=== PATIENT | female | born 2000 | race African-American/Black ===

== ENCOUNTER 2023-08-20 08:15 | Emergency (ER) | payer OTHER, SELFPAY ==
--- NOTE | 2023-08-20 09:01 | EDRN ---
the pt was compliant with this RN obtaining vital signs, and allowing this RN to draw labs, the pt also provided a urine sample with no issues, the pt is calm, pleasant, and cooperative with staff, the pt stated to this RN, 'I just want help with my
mental health, the voices are acting up again and they make me want to hurt myself, and i am just super anxious and i have been looking into facilities and would love to go to [place] to be treated', Dr. Owen at the pts bedside speaking with the
pt, the pts mother, and the pts grandmother, pts BP elevated at 150/99 (112), will continue to monitor the pt closely
[2023-08-20 09:17] LABS: % Basophils 0.5 % (0-2); % Eosinophils 4.5 % (0-6); % Immature Granulocytes 0.3 % (0-0.5); % Lymphocytes 33.6 % (20.5-51.1); % Monocytes 6.8 % (1.7-9.3); % Neutrophils 54.3 % (42.2-75.2); Absolute Eosinophils 0.3 10^3/uL (0-0.7); Absolute Lymphocytes 2.2 10^3/uL (1.2-3.4); Absolute Monocytes 0.5 10^3/uL (0.1-0.6); Absolute Neutrophils 3.6 10^3/uL (1.4-6.5); Hematocrit 39.9 % (37.0-47.0); Hemoglobin 13.1 g/dL (12.0-16.0); Mean Corp Hgb Conc. 32.8 g/dL (33.0-37.0); Mean Corpuscular Hgb 27.6 pg (27.0-31.0); Mean Corpuscular Volume 84.2 fL (81.0-99.0); Mean Platelet Volume 10.5 fL (7.4-10.4); Nucleated Red Blood Cells % 0 %; Platelet Count 384 10^3/uL (130-400); Red Blood Cell Count 4.74 10^6/uL (4.20-5.40); Red Cell Dist. Width 14.1 % (11.5-14.5); White Blood Cell Count 6.6 10^3/uL (4.8-10.8)
[2023-08-20] MEDS: NORVASC 10 MG PO (09:21)
--- NOTE | 2023-08-20 09:23 | ED.GENMED ---
History of Present Illness
General
Chief Complaint: Crisis Evaluation
Source: patient and family
Time Seen by Provider: 08/20/23 08:45
Travel History
Have you had any contact with someone who has COVID-19?: No
Do you have any symptoms of coronavirus? Fever > 100 degrees, chills, cough, shortness of breath, sore throat, loss of taste or smell, muscle aches, or headache?: No
History of Present Illness
History of Present Illness:
23-year-old female with a history of hypertension, schizophrenia, prior suicide attempts who presents for evaluation after she has had increasing voices and suicidal ideation. She states has been progressive over the last month. She also admits
that she has not been taking her blood pressure pills for the last 1 month. Patient denies any medical complaints. She specifically denies chest pain or shortness of breath. No fevers.
Past History
Past History
ED Past Medical History: Asthma, HTN and Psychiatric (Schizophrenia, prior suicide attempt, bipolar disorder, ADHD)
ED Past Surgical History: Orthopedic and Other
Social History
Tobacco: Vaping
Alcohol: None
Drug: None
Personal: Single
Living: with family
Phy Exam
Physical Exam
Physical Exam:
CONSTITUTIONAL Patient alert and oriented to person, place and time. Well-appearing. Vital signs reviewed.
HEAD atraumatic, normocephalic.
EYES eyelids normal to inspection, Pupils equally round and reactive to light, Extraocular muscles intact, Conjunctiva normal, Sclera normal.
NECK normal range of motion, Trachea midline, no jugular venous distention.
RESPIRATORY CHEST No respiratory distress noted, Chest expansion equal, Bilateral breath sounds clear.
CARDIOVASCULAR regular rate and rhythm, Heart sounds normal.
ABDOMEN abdomen nontender, Bowel sounds normal. No distention.
BACK normal inspection, no obvious deformities
UPPER EXTREMITY range of motion normal, Motor strength normal, no cyanosis, no edema.
LOWER EXTREMITY range of motion normal, Motor strength normal, no cyanosis, no edema.
NEURO Speech normal, No focal motor deficits, Arthur coma scale 15, Memory normal, Cranial Nerves intact to screening exam.
SKIN skin warm, dry, and normal in color.
PSYCHIATRIC patient oriented to person place and time, Normal affect.
Course
Orders/Labs/Results
Orders:
Orders
08/20/23 08:35
HCG, Urine Qualitative Screen Urgent
Date Specimen was Collected: 08/20/23
Time Specimen was Collected: 08:37
Urine Drug Abuse Screen Urgent
Date Specimen was Collected: 08/20/23
Time Specimen was Collected: 08:37
08/20/23 08:37
Test Result ONCE
08/20/23 08:45
Acetaminophen Urgent
Alcohol Urgent
COVID-19 Antigen Urgent
Source: Nasal Swab
Complete Blood Count/With Diff Urgent
Comprehensive Metabolic Panel Urgent
08/20/23 09:03
Amlodipine [Norvasc] 10 mg PO NOW STA
Vital Signs
Initial and Last Documented VS:
Initial Vital Signs
Temp Pulse Resp BP Pulse Ox
97.9 F 88 16 172/110 98
08/20/23 08:29 08/20/23 08:29 08/20/23 08:29 08/20/23 08:29 08/20/23 08:29
Last Documented Vital Signs
Temp Pulse Resp BP Pulse Ox
97.9 F 88 16 123/66 99
08/20/23 08:29 08/20/23 08:29 08/20/23 08:29 08/20/23 09:10 08/20/23 09:15
MDM/Problems Addressed
MDM/Problems Addressed:
Schizophrenia, suicidal thoughts
*Pulse Oximetry
Patient hypoxic: no
*Critical Care Note
Total Time (30-74mins, 75-104mins- exclusive of procedures): Not Applicable
Data Reviewed
Source: patient and family
Patient Management
Discussion with other providers: Other (Case discussed with [facility])
Escalation/DeEscalation of care consider admission/obs:
Stable. Labs for clearance and discharge back to crisis
ED Attending Note
-
Portions of this chart may have been created with voice recognition software.� Occasional wrong word or��sound alike� substitutions may have occurred due to the inherent limitations of voice recognition software.
Discharge Plan
Departure
Prescriptions:
No Action
gabapentin 100 mg Capsule
100 mg PO DAILY
aripiprazole [Abilify] 20 mg Tablet
20 mg PO DAILY
Interventions
Interventions:
*Risk Screen - Suicide Last Done: 08/20/23 08:29
*General Assessment Last Done: 08/20/23 08:47
*Neglect/Abuse Screening Last Done: 08/20/23 08:29
ED- Fall Risk Assessment Last Done: 08/20/23 08:47
*ED COVID-19 Vaccine History Last Done: 08/20/23 08:29
ED-Psychological Assessment Last Done: 08/20/23 08:47
[2023-08-20 09:27] LABS: COVID-19 Antigen Negative (Negative)
[2023-08-20 09:30] LABS: ALT (SGPT) 14 U/L (0-35); AST (SGOT) 19 U/L (14-36); Acetaminophen < 10 ug/ml (10-30); Albumin 3.9 g/dl (3.5-5.0); Alkaline Phosphatase 87 U/L (38-126); Blood Urea Nitrogen 9 mg/dl (7-17); Calcium 9.4 mg/dl (8.4-10.2); Carbon Dioxide 25 mmol/L (22-30); Chloride 112 mmol/L (98-107); Estimated Creatinine Clearance > 125 ml/min; Glucose 71 mg/dl (70-99); Potassium 3.6 mmol/L (3.5-5.1); Sodium 140 mmol/L (135-145); Total Bilirubin 0.4 mg/dl (0.2-1.3); Total Protein 6.7 g/dl (6.3-8.2); eGFR > 60.00
--- NOTE | 2023-08-20 09:34 | EDRN ---
this RN called the lab per Dr. Diaz request to check the status of the pts urine, the lab stated to this RN that they did not have the urine, this RN notified the lab that the urine was sent with the rest of the pts blood work, the lab rechecked
and stated that they were working on resulting the urine now, Dr. Owen notified
[2023-08-20 09:37] LABS: Alcohol None Detected
[2023-08-20 09:48] LABS: Amphetamines Negative (Negative); Barbiturates Negative (Negative); Benzodiazepines Negative (Negative); Buprenorphine Negative (Negative); Cocaine Negative (Negative); HCG, Urine Qualitative Screen Negative; Marijuana Positive (Negative); Methadone Negative (Negative); Methamphetamines Negative (Negative); Opiates Negative (Negative); Phencyclidine Negative (Negative); Tricyclic Antidepressants Negative (Negative)
--- NOTE | 2023-08-20 10:00 | EDRN ---
the pt is resting in stretcher in the lowest position, side rails up x1, call sahu within reach, HOB elevated, no s/s of distress, the pt is calm, pleasant, and cooperative with ER staff, no s/s of distress, the pts grand mother and mother are
currently at the pts bedside, VS WN, awaiting for medical clearance from Dr. Owen to send the pt over to crisis, will continue to monitor the pt closely
== END 2023-08-20 11:07 ==
LOC: EMR 08:15
PROVIDERS: EMERGENCY PHYSICIAN Emergency Medicine
DX: R45.851 Suicidal ideations (principal); F31.9 Bipolar disorder, unspecified; F20.9 Schizophrenia, unspecified; I10 Essential (primary) hypertension; J45.909 Unspecified asthma, uncomplicated; F17.290 Nicotine dependence, other tobacco product, uncomplicated; Z91.51 Personal history of suicidal behavior
CPT/HCPCS: 99285; 80053; 80143; 80306; 81025; 82077; 85025; 87811; 99283

== ENCOUNTER 2025-01-26 00:37 | Emergency (ER) | payer OTHER, SELFPAY ==
[2025-01-26] VITALS (9 sets, daily range): BP systolic 105–198; BP diastolic 54–124; BMI 55.9
--- NOTE | 2025-01-26 01:32 | ED.GENMED ---
History of Present Illness
General
Chief Complaint: Abdominal Symptoms
Source: patient, records and family
Exam Limitations: none
Time Seen by Provider: 01/26/25 01:03
Nursing documentation reviewed up to this point in time: agreed with
History of Present Illness
History of Present Illness:
24-year-old female presents with abdominal pain nausea vomiting diarrhea
Onset earlier today although she has had symptoms previously,
She had a history of gastric bypass for 5 years ago at [facility] she does not know the name of the surgeon although she states that here she has moved away has not followed up
There is a surgical consult from Dr. Mitchell in the EMR here she came in without obstruction referred back to [facility], asked the patient about that she states she was treated nonoperatively without a NG tube because she 'freaked out'
Additionally she admits that she suffers with pica, states she eats a lot of toilet paper, she is unable to quantify how much although her mother states there has been toilet paper missing from the home, she has been under therapy for pica although
it is unclear how intense it is been, she does suffer from mental illness as well, additionally she is gained back most of her weight from the gastric bypass
Past History
Past History
ED Past Medical History: Asthma, HTN and Psychiatric (Schizophrenia, prior suicide attempt, bipolar disorder, ADHD)
ED Past Surgical History: Orthopedic and Other
Social History
Tobacco: Vaping
Alcohol: None
Drug: None
Personal: Single
Living: with family
Phy Exam
Physical Exam
Physical Exam:
Physical Exam
General: 24-year-old female appears nauseous
Neck: No jaundice lips are dry
Heart: s1/s2 regular rate and rhythm, no murmur. equal radial pulses.
Lungs: no acute respiratory distress.
Abdomen: Distended mild diffuse tenderness bowel sounds are present but high-pitched
Neuro: alert and oriented. no focal neurological deficits
Skin: no rash
Psychiatric: well kept. interactive and cooperative
Extremities: no edema.
Course
Orders/Labs/Results
Orders:
Orders
01/26/25 01:28
IV Insert/Care/Rem.- Treatment PRN
0.9% Sodium Chloride 1000 ml [Nss] 1,000 ml IV BOLUS
HYDROmorphone [Dilaudid] 1 mg IV NOW STA
Iohexol [Omnipaque] See Protocol PO NOW STA
Ondansetron Injectable [Zofran] 4 mg IV NOW STA
Pantoprazole [Protonix IV] 40 mg IV NOW STA
01/26/25 01:29
CT Abd/pel W Iv And Oral Contr Urgent
Comment:
Reason For Exam: pica gastric bypass
Test Result ONCE
01/26/25 01:35
Complete Blood Count/With Diff Urgent
Comprehensive Metabolic Panel Urgent
HCG, Serum Qualitative Screen Urgent
Lipase Urgent
01/26/25 07:19
0.9% Sodium Chloride 1000 ml [Nss] 1,000 ml IV BOLUS
01/26/25 08:24
HYDROmorphone [Dilaudid] 1 mg IV NOW STA
Abnormal Lab Results
01/26/25
01:35
Hgb 8.8 L g/dL
(12.0-16.0)
Hct 30.4 L %
(37.0-47.0)
MCV 63.9 L fL
(81.0-99.0)
MCH 18.5 L pg
(27.0-31.0)
MCHC 28.9 L g/dL
(33.0-37.0)
RDW 19.8 H %
(11.5-14.5)
Plt Count 461 H 10^3/uL
(130-400)
Potassium 3.4 L mmol/L
(3.5-5.1)
Chloride 109 H mmol/L
(98-107)
Glucose 116 H mg/dl
(70-99)
01/26/25 01:35
01/26/25 01:35
Vital Signs
Initial and Last Documented VS:
Initial Vital Signs
Temp Pulse Resp BP Pulse Ox
98.2 F 100 26 198/124 95
01/26/25 00:38 01/26/25 00:38 01/26/25 00:38 01/26/25 00:38 01/26/25 00:38
Last Documented Vital Signs
Temp Pulse Resp BP Pulse Ox
98.2 F 56 18 121/54 94
01/26/25 00:38 01/26/25 04:08 01/26/25 04:08 01/26/25 09:00 01/26/25 09:01
MDM/Problems Addressed
Differential Diagnosis Includes:
Obstruction, gastric bypass, pica
MDM/Problems Addressed:
Gastric bypass PICA mental illness
Chronic conditions affecting care:
Gastric bypass PICA mental illness
Chronic conditions affecting care: Previous abdomnial surgery and Psychiatric illness
Acute Exacerbation and/or Progression of Chronic Illness:
Gastric bypass plica mental illness
Acute Exacerbation and/or Progression of Chronic Illness: Previous abdomnial surgery and Psychiatric illness
*Radiology
Radiology exam reviewed: radiology read reviewed
*Pulse Oximetry
SaO2: 95
Patient hypoxic: no
*[facility] Interpretation
Rate: normal
Interpretation: normal
Heart Rate: 78
Rhythm: sinus
*Critical Care Note
Total Time (30-74mins, 75-104mins- exclusive of procedures): 35
Update Note
Update Note:
[address] update [address] noted report noted, prior surgical consultation noted surgery was admitted to [facility], operating surgeon no longer there, briefly reviewed with surgery on-call here they recommended transfer to tertiary care center with a
bariatric surgeon patient and family are agreeable will try to get in contact with somebody at [facility]
8 AM discussed with hospitalist Dr. Carmona at [facility] they prefer that the patient go to the [place] system because patient was previously seen there further surgery
ED Attending Note
-
Portions of this chart may have been created with voice recognition software.� Occasional wrong word or��sound alike� substitutions may have occurred due to the inherent limitations of voice recognition software.
Discharge Plan
Departure
Patient Disposition: Acute Care Hospital
Date of Disposition: 01/26/25
Time of Disposition: 08:09
Patient with high blood pressure during this ER visit?: No
Condition: Good
Discharge Problem:
SBO (small bowel obstruction), Pica in adults
Prescriptions:
No Action
gabapentin 100 mg Capsule
100 mg PO DAILY
aripiprazole [Abilify] 20 mg Tablet
20 mg PO DAILY
Referrals:
Desmond Mariee MD [Family Provider, Internal Medicine]
Hospital Transfer
Other hospital: [facility]
I certify that the patient requires transfer: Yes
Discussed case with accepting physician: samuel
Reason for transfer: higher level of care
Interventions
Interventions:
*Risk Screen - Suicide Last Done: 01/26/25 00:38
*General Assessment Last Done: 01/26/25 01:28
*Neglect/Abuse Screening Last Done: 01/26/25 00:38
*ED- Fall Risk Assessment Last Done: 01/26/25 01:28
*ED COVID-19 Vaccine History Last Done: 01/26/25 01:28
*Nursing Disposition Last Done: 01/26/25 10:30
CC-[id number]-[id number] Assessment Last Done: 01/26/25 01:28
Discharge Date and Time
Discharge Date/Time: 01/26/25 10:30
Print Language: ALBANIAN
[2025-01-26] MEDS: NSS 1000 IV ×2 (01:36→08:32)
[2025-01-26] MEDS: OMNIPAQUE 50 ML PO (01:40)
[2025-01-26] MEDS: DILAUDID 1 MG IV ×2 (01:40→08:32)
[2025-01-26] MEDS: ZOFRAN 4 MG IV (01:40)
[2025-01-26] MEDS: PROTONIX IV 40 MG IV (01:41)
[2025-01-26 01:49] LABS: HCG, Serum Qualitative Screen Negative
[2025-01-26 01:50] LABS: Hematocrit 30.4 % (37.0-47.0); Hemoglobin 8.8 g/dL (12.0-16.0); Mean Corp Hgb Conc. 28.9 g/dL (33.0-37.0); Mean Corpuscular Volume 63.9 fL (81.0-99.0); Nucleated Red Blood Cells % 0 %; Platelet Count 461 10^3/uL (130-400); Red Cell Dist. Width 19.8 % (11.5-14.5)
[2025-01-26 02:16] LABS: ALT (SGPT) 18 U/L (0-35); AST (SGOT) 23 U/L (14-36); Albumin 4.4 g/dl (3.5-5.0); Alkaline Phosphatase 89 U/L (38-126); Blood Urea Nitrogen 7 mg/dl (7-17); Calcium 9.9 mg/dl (8.4-10.2); Carbon Dioxide 24 mmol/L (22-30); Chloride 109 mmol/L (98-107); Estimated Creatinine Clearance > 125 ml/min; Glucose 116 mg/dl (70-99); Lipase 54 U/L (23-300); Potassium 3.4 mmol/L (3.5-5.1); Sodium 141 mmol/L (135-145); Total Protein 7.5 g/dl (6.3-8.2); eGFR > 60.00
== END 2025-01-26 10:30 | disposition short-term general hospital (02) ==
LOC: EMR 00:37
PROVIDERS: EMERGENCY PHYSICIAN Emergency Medicine; FAMILY PHYSICIAN Internal Medicine
DX: K56.609 Unspecified intestinal obstruction, unspecified as to partial versus complete obstruction (principal); J45.909 Unspecified asthma, uncomplicated; I10 Essential (primary) hypertension; F17.290 Nicotine dependence, other tobacco product, uncomplicated; Z98.84 Bariatric surgery status; F50.83 Pica in adults
CPT/HCPCS: 96374; 96375; 96376; 96361; 99291; 74177; 80053; 83690; 84703; 85025; Q9967